=== PATIENT | female | born 1980 | race Caucasian/White ===

== ENCOUNTER 2020-04-11 12:06 | Inpatient (IN) | payer OTHER ==
[2020-04-11] MEDS ORDERED: Ondansetron 4 MG/2 ML SDV IVPUSH PRN (12:28)
[2020-04-11] MEDS ORDERED: Sodium Chloride 0.9% 10 ML Syringe FLUSH PRN (12:28)
[2020-04-11] MEDS ORDERED: Nalbuphine 10 MG/ML Syringe IVPUSH PRN (12:28)
[2020-04-11] MEDS ORDERED: Oxytocin/Lactated Ringers 10 UNIT/1,000 ML BAG IV SCH (12:30)
--- NOTE | 2020-04-11 12:31 | PCM.LDHP ---
L&D History of Present Illness - General Date of Service: 04/11/20 Admit Problem/Dx: Patient Status Order with Admit Dx/Problem 04/11/20 12:13 Patient Status [ADT] Routine 04/11/20 12:29 Patient Status [ADT] Routine Admission Diagnosis/Problem Admission Diagnosis/Problem Source of Information: Patient History Limitations: Reports: No Limitations - History of Present Illness Introduction:: Patient is a 39-year-old at 37-3/7 weeks who comes in with rupture of membranes. This occurred at about 8:30 or so this morning. Has had minimal if any contractions since that time. Otherwise doing well. 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: , Spontaneous : 3 Para: 1 LMP (Approximate): Psychiatric History: Reports: Anxiety, Depression - Past Surgical History Female Surgical History: Reports: D&C Social & Family History - Tobacco Use Smoking Status *Q: Former Smoker - Alcohol Use Alcohol Use History: No - Recreational Drug Use Recreational Drug Use: No H&P Review of Systems - Review of Systems: Review Of Systems: See Below General: Reports: No Symptoms Pulmonary: Reports: No Symptoms Cardiovascular: Reports: No Symptoms Gastrointestinal: Reports: No Symptoms Genitourinary: Reports: No Symptoms Musculoskeletal: Reports: No Symptoms Psychiatric: Reports: No Symptoms Neurological: Reports: No Symptoms L&D Exam - Exam Exam: See Below - Vital Signs Weight: 83.915 kg - OB Specific Contraction Intensity: Irritability Movement: Active Heart Tones: Present Heart Tones per Min: 140 Heart Rate (FHR) Variability: Moderate (6-25 bmp) Presentation: Vertex - French Score French Score Cervix Position: Midposition French Score Consistency: Soft French Score Effacement: 51-70% French Score Dilation: 1-2 cm French Score 's Station: -2 French Score Total: 7 - Exam General: Alert, Oriented, Cooperative Lungs: Clear to Auscultation, Normal Respiratory Effort Cardiovascular: Regular Rate, Regular Rhythm GI/Abdominal Exam: Soft, Non-Tender Genitourinary: Normal external exam Extremities: Normal Inspection Skin: Warm, Dry, Intact - Patient Data Result Diagrams: 04/11/20 13:01 - Problem List (1) Spontaneous rupture of membranes SNOMED Code(s): 370726367 ICD Code: [id number] - Status: Acute Current Visit: Yes (2) 37 weeks gestation of SNOMED Code(s): 77483362 ICD Code: Z3A.37 - 37 WEEKS GESTATION OF Status: Acute Current Visit: Yes Problem List Initiated/Reviewed/Updated: Yes Orders Last 24hrs: Active Orders 24 hr Category Date Time Status Patient Status [ADT] Routine ADT 04/11/20 12:13 Active Patient Status [ADT] Routine ADT 04/11/20 12:29 Ordered Activity as Tolerated [RC] PFP Care 04/11/20 12:28 Ordered Communication Order [RC] ASDIRECTED Care 04/11/20 12:28 Ordered Heart Tones [RC] ASDIRECTED Care 04/11/20 12:29 Ordered Non Stress Test [RC] PER UNIT ROUTINE Care 04/11/20 12:13 Active Notify Provider [RC] PRN Care 04/11/20 12:28 Ordered Peripheral IV Care [RC] . DIRECTED Care 04/11/20 12:29 Ordered Vital Signs [RC] PER UNIT ROUTINE Care 04/11/20 12:13 Active Vital Signs [RC] PER UNIT ROUTINE Care 04/11/20 12:28 Ordered Regular Diet [DIET] Diet 04/11/20 Lunch Ordered CBC W/O DIFF,HEMOGRAM [HEME] Routine Lab 04/11/20 12:28 Ordered CORONAVIRUS COVID-19 EZIO [MOLEC] Routine Lab 04/11/20 12:28 Ordered RAPID PLASMA REAGIN,RPR [CHEM] Routine Lab 04/11/20 12:28 Ordered TYPE AND SCREEN [BBK] Routine Lab 04/11/20 12:28 Ordered Lactated Ringers [Ringers, Lactated] 1,000 ml Med 04/11/20 12:30 Ordered IV ASDIRECTED Nalbuphine [Nubain] Med 04/11/20 12:28 Ordered 10 mg IVPUSH Q2H PRN Ondansetron [Zofran] Med 04/11/20 12:28 Ordered 4 mg IVPUSH Q4H PRN Oxytocin/Lactated Ringers [Pitocin in LR 10 Units/1,000 Med 04/11/20 12:30 Ordered ML] 10 unit in 1,000 ml IV .CONTINUOUS Sodium Chloride 0.9% [Saline Flush] Med 04/11/20 12:28 Ordered 10 ml FLUSH ASDIRECTED PRN Electronic Heart Tones Ext w TOCO [WOMSER] Oth 04/11/20 12:28 Ordered Routine Electronic Heart Tones Internal [WOMSER] Per Unit Ot 04/11/20 12:28 Ordered Routine Peripheral IV Insertion Adult [OM.PC] Routine Ot 04/11/20 12:28 Ordered Resuscitation Status Routine Resus Stat 04/11/20 12:13 Ordered Assessment/Plan Comment:: * Labs done * GBS negative * Consider pitocin augmentation if no painful contractions * Pain management per patient preference * Anticipate
[2020-04-11] MEDS: Lactated Ringers 1,000 ML IV SCH ×3 (14:28→17:25)
[2020-04-11] MEDS ORDERED: diphenhydrAMINE 50 MG/ML SDV IVPUSH PRN (14:34)
[2020-04-11] MEDS ORDERED: fentaNYL 100 MCG/2 ML SDV EPIDUR PRN (14:34)
[2020-04-11] MEDS ORDERED: ePHEDrine 50 MG/ML SDV IVPUSH PRN (14:34)
[2020-04-11] MEDS ORDERED: Bupivacaine/fentaNYL/NS 100 ML Bag EPIDUR PRN (14:34)
--- NOTE | 2020-04-11 18:39 | PCM.DEL ---
L & D Note - General Info Date of Service: 04/11/20 - Delivery Note Labor: Spontaneous Delivery Outcome: Livebirth Delivery Method: Spontaneous Vaginal Delivery-Single Delivery Mode: Spontaneous Presentation: Right Occiput Anterior (HANNAH) Nuchal Cord: None Anesthesia Type: Epidural Amniotic Fluid Description: Clear Episiotomy Type: None Laceration: None Placenta: Intact, Spontaneous Cord: 3 Vessels Estimated Blood Loss: 100 Resuscitation Needed: Yes [place]: Bulb Syringe, Stimulated, Warmed, [place] Used, Warmer Used Delivery Comments (Free Text/Narrative):: Patient found to be complete and began pushing. With maternal pushing effort head delivered from an HANNAH presentation. No nuchal cord present. With gentle downward traction the shoulders and body delivered. Infant placed on maternal abdomen. Cord clamped and cut. Cord blood obtained. Placenta allowed time to separate and expelled intact. Inspection of the perineum showed no lacerations - General Info Date of Service: 04/11/20 - Patient Data Vitals - Most Recent: Last Vital Signs Temp 36.9 C 04/11/20 12:13 Pulse 89 04/11/20 12:13 Resp 16 04/11/20 12:13 BP 127/89 04/11/20 12:13 Pulse Ox 98 04/11/20 12:13 Weight - Most Recent: 83.915 kg - Problem List & Annotations (1) Spontaneous rupture of membranes SNOMED Code(s): 337061767 Code(s): VQW3844 - Status: Acute Current Visit: Yes (2) 37 weeks gestation of SNOMED Code(s): 61416081 Code(s): Z3A.37 - 37 WEEKS GESTATION OF Status: Acute Current V isit: Yes - Problem List Review Problem List Initiated/Reviewed/Updated: Yes - My Orders Last 24 Hours: My Active Orders 04/11/20 Lunch Regular Diet [DIET] 04/11/20 12:13 Patient Status [ADT] Routine Non Stress Test [RC] PER UNIT ROUTINE Vital Signs [RC] PER UNIT ROUTINE Resuscitation Status Routine 04/11/20 12:28 Activity as Tolerated [RC] PFP Communication Order [RC] ASDIRECTED Notify Provider [RC] PRN Vital Signs [RC] PER UNIT ROUTINE Nalbuphine [Nubain] 10 mg IVPUSH Q2H PRN Ondansetron [Zofran] 4 mg IVPUSH Q4H PRN Sodium Chloride 0.9% [Saline Flush] 10 ml FLUSH ASDIRECTED PRN Electronic Heart Tones Ext w TOCO [WOMSER] Routine Electronic Heart Tones Internal [WOMSER] Per Unit Routine Peripheral IV Insertion Adult [OM.PC] Routine 04/11/20 12:29 Patient Status [ADT] Routine Heart Tones [RC] ASDIRECTED Peripheral IV Care [RC] . DIRECTED 04/11/20 12:30 Lactated Ringers [Ringers, Lactated] 1,000 ml IV ASDIRECTED Oxytocin/Lactated Ringers [Pitocin in LR 10 Units/1,000 ML] 10 unit in 1,000 ml IV .CONTINUOUS 04/11/20 13:01 RAPID PLASMA REAGIN,RPR [CHEM] Routine 04/11/20 14:01 PATIENT RETYPE [BBK] Routine - Assessment Assessment:: PPD#0 - Plan Plan:: * Routine cares * Breast feeding * Discharge home in 1-2 days
[2020-04-11] MEDS ORDERED: Benzocaine/Menthol 20%-0.5% Spray 56 GM Canister TOP PRN (19:18)
[2020-04-11] MEDS ORDERED: Ibuprofen 600 MG Tab PO PRN (19:18)
[2020-04-11] MEDS ORDERED: Acetaminophen 325 MG Tab PO PRN (19:18)
[2020-04-11] MEDS ORDERED: Witch Hazel Medicated Pads 40/Jar TOP PRN (19:18)
--- NOTE | 2020-04-11 20:17 | PCM.PREANE ---
Preanesthetic Assessment - Procedure Proposed Procedure: Continuous Labor epidural - Anesthesia/Transfusion/Family Hx Anesthesia History: Prior Anesthesia Without Reaction Transfusion History: No Prior Transfusion(s) - Review of Systems General: No Symptoms Pulmonary: No Symptoms Cardiovascular: No Symptoms Gastrointestinal: No Symptoms Neurological: No Symptoms Other: Reports: None - Physical Assessment Vital Signs: Last Vital Signs Temp 98.4 F 04/11/20 12:13 Pulse 89 04/11/20 12:13 Resp 16 04/11/20 12:13 BP 127/89 04/11/20 12:13 Pulse Ox 98 04/11/20 12:13 Height: 1.55 m Weight: 83.915 kg ASA Class: 2 Mental Status: Alert & Oriented x3 Airway Class: Mallampati = 3 Dentition: Reports: Normal Dentition, [place](s) Thyro-Mental Finger Breadths: 3 Mouth Opening Finger Breadths: 3 ROM/Head Extension: Full Lungs: Clear to Auscultation, Normal Respiratory Effort Cardiovascular: Regular Rate, Regular Rhythm - Lab Values: Laboratory Last Values WBC 12.95 K/mm3 (3.98-10.04) H 04/11/20 13:01 RBC 3.30 M/mm3 (3.98-5.22) L 04/11/20 13:01 Hgb 10.7 gm/dl (11.2-15.7) L 04/11/20 13:01 Hct 32.2 % (34.1-44.9) L 04/11/20 13:01 MCV 97.6 fl (79.4-94.8) H 04/11/20 13:01 MCH 32.4 pg (25.6-32.2) H 04/11/20 13:01 MCHC 33.2 g/dl (32.2-35.5) 04/11/20 13:01 RDW Std Deviation 48.1 fL (36.4-46.3) H 04/11/20 13:01 Plt Count 336 K/mm3 (182-369) 04/11/20 13:01 MPV 11.4 fl (9.4-12.3) 04/11/20 13:01 COVID-19 (EZIO) Negative (NEGATIVE) 04/11/20 13:05 Blood Type O POSITIVE 04/11/20 13:01 Gel Antibody Screen Negative 08/04/20 13:01 - Allergies Allergies/Adverse Reactions: Allergies Allergy/AdvReac Type Severity Reaction Status Date / Time No Known Allergies Allergy Verified 04/11/20 12:13 - Acknowledgements Anesthesia Type Planned: Epidural Pt an Appropriate Candidate for the Planned Anesthesia: Yes Alternatives and Risks of Anesthesia Discussed w Pt/Guardian: Yes Pt/Guardian Understands and Agrees with Anesthesia Plan: Yes PreAnesthesia Questionnaire - Past Health History Medical/Surgical History: Denies Medical/Surgical History Cardiovascular History: Reports: Other (See Below) (Hx of Transient hypertension in ) Genitourinary History: Reports: Pyelonephritis 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: , 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 Psychiatric History: Reports: Anxiety, Depression - Past Surgical History Female Surgical History: Reports: D&C - SUBSTANCE USE Smoking Status *Q: Former Smoker Second Hand Smoke Exposure: No Recreational Drug Use History: No - CURRENT (IN HOUSE) MEDS Current Meds: Current Medications Acetaminophen (Tylenol) 650 mg PO Q4H PRN PRN Reason: mild pain or fever Benzocaine/Menthol (Dermoplast Pain Relief [place]) 0 gm TOP ASDIRECTED PRN PRN Reason: Perineal Comfort Measure Ibuprofen (Motrin) 600 mg PO Q6H PRN PRN Reason: Mild pain or fever Witch [place] (Tucks) 1 pad TOP ASDIRECTED PRN PRN Reason: Perineal Comfort Measure Discontinued Medications Diphenhydramine HCl (Benadryl) 25 mg IVPUSH Q6H PRN PRN Reason: pruritis Ephedrine Sulfate (Ephedrine Sulfate) 5 mg IVPUSH ASDIRECTED PRN PRN Reason: Hypotension Fentanyl (Sublimaze) 100 mcg EPIDUR Q3H PRN PRN Reason: Pain Last Admin: 04/11/20 14:47 Dose: 100 mcg Documented by: Fentanyl/Bupivacaine HCl (Fentanyl/Bupivacaine/Ns 2 Mcg-0.125% 100 Ml) 100 ml EPIDUR ASDIRECTED PRN PRN Reason: Pain Last Admin: 04/11/20 14:48 Dose: 100 ml Documented by: Lactated Ringer's (Ringers, Lactated) 1,000 mls @ 100 mls/hr IV ASDIRECTED DK Last Admin: 04/11/20 17:25 Dose: 150 mls/hr Documented by: Oxytocin/Lactated Ringer's (Pitocin In Lr 10 Units/1,000 Ml) 10 unit in 1,000 mls @ 500 mls/hr IV .CONTINUOUS DK Last Admin: 04/11/20 18:14 Dose: 500 mls/hr Documented by: Nalbuphine HCl (Nubain) 10 mg IVPUSH Q2H PRN PRN Reason: Pain Ondansetron HCl (Zofran) 4 mg IVPUSH Q4H PRN PRN Reason: Nausea/Vomiting Sodium Chloride (Saline Flush) 10 ml FLUSH ASDIRECTED PRN PRN Reason: Keep Vein Open
[2020-04-12] MEDS ORDERED: Lidocaine 1.5% with EPINEPHrine 1:200,000 5 ML Amp ONE
[2020-04-12] MEDS ORDERED: Hydrocortisone Acetate 25 MG Supp RECTAL PRN (00:22)
--- NOTE | 2020-04-12 06:03 | PCM.PNPP ---
- General Info Date of Service: 04/12/20 Functional Status: Reports: Pain Controlled, Tolerating Diet, Ambulating, Urinating - Review of Systems General: Reports: No Symptoms Pulmonary: Reports: No Symptoms Cardiovascular: Reports: No Symptoms Gastrointestinal: Reports: No Symptoms Genitourinary: Reports: No Symptoms Musculoskeletal: Reports: No Symptoms Neurological: Reports: No Symptoms - Patient Data Vital Signs - Most Recent: Last Vital Signs Temp 36.6 C 04/12/20 02:07 Pulse 78 04/12/20 02:07 Resp 14 04/12/20 02:07 BP 118/78 04/12/20 02:07 Pulse Ox 98 04/12/20 02:07 Weight - Most Recent: 83.915 kg I&O - Last 24 Hours: Intake & Output 04/11/20 04/11/20 04/12/20 14:59 22:59 06:59 Intake Total 3050 Output Total 175 Balance 2875 Lab Results - Last 24 Hours: Laboratory Results - last 24 hr 04/11/20 04/11/20 04/11/20 Range/Units 13:01 13:01 13:01 WBC 12.95 H (3.98-10.04) K/mm3 RBC 3.30 L (3.98-5.22) M/mm3 Hgb 10.7 L (11.2-15.7) gm/dl Hct 32.2 L (34.1-44.9) % MCV 97.6 H (79.4-94.8) fl MCH 32.4 H (25.6-32.2) pg MCHC 33.2 (32.2-35.5) g/dl RDW Std Deviation 48.1 H (36.4-46.3) fL Plt Count 336 (182-369) K/mm3 MPV 11.4 (9.4-12.3) fl RPR Non-reactive (NONREACTIVE) COVID-19 (EZIO) (NEGATIVE) Blood Type O POSITIVE Gel Antibody Screen Negative 04/11/20 Range/Units 13:05 WBC (3.98-10.04) K/mm3 RBC (3.98-5.22) M/mm3 Hgb (11.2-15.7) gm/dl Hct (34.1-44.9) % MCV (79.4-94.8) fl MCH (25.6-32.2) pg MCHC (32.2-35.5) g/dl RDW Std Deviation (36.4-46.3) fL Plt Count (182-369) K/mm3 MPV (9.4-12.3) fl RPR (NONREACTIVE) COVID-19 (EZIO) Negative (NEGATIVE) Blood Type Gel Antibody Screen Med Orders - Current: Current Medications Acetaminophen (Tylenol) 650 mg PO Q4H PRN PRN Reason: mild pain or fever Benzocaine/Menthol (Dermoplast Pain Relief [place]) 0 gm TOP ASDIRECTED PRN PRN Reason: Perineal Comfort Measure Hydrocortisone Acetate (Anucort-Hc) 25 mg RECTAL DAILY PRN PRN Reason: Hemorrhoids Ibuprofen (Motrin) 600 mg PO Q6H PRN PRN Reason: Mild pain or fever [place] (Tucks) 1 pad TOP ASDIRECTED PRN PRN Reason: Perineal Comfort Measure Discontinued Medications Diphenhydramine HCl (Benadryl) 25 mg IVPUSH Q6H PRN PRN Reason: pruritis Ephedrine Sulfate (Ephedrine Sulfate) 5 mg IVPUSH ASDIRECTED PRN PRN Reason: Hypotension Fentanyl (Sublimaze) 100 mcg EPIDUR Q3H PRN PRN Reason: Pain Last Admin: 04/11/20 14:47 Dose: 100 mcg Documented by: Fentanyl/Bupivacaine HCl (Fentanyl/Bupivacaine/Ns 2 Mcg-0.125% 100 Ml) 100 ml EPIDUR ASDIRECTED PRN PRN Reason: Pain Last Admin: 04/11/20 14:48 Dose: 100 ml Documented by: Lactated Ringer's (Ringers, Lactated) 1,000 mls @ 100 mls/hr IV ASDIRECTED DK Last Admin: 04/11/20 17:25 Dose: 150 mls/hr Documented by: Oxytocin/Lactated Ringer's (Pitocin In Lr 10 Units/1,000 Ml) 10 unit in 1,000 mls @ 500 mls/hr IV .CONTINUOUS DK Last Admin: 04/11/20 18:14 Dose: 500 mls/hr Documented by: Nalbuphine HCl (Nubain) 10 mg IVPUSH Q2H PRN PRN Reason: Pain Ondansetron HCl (Zofran) 4 mg IVPUSH Q4H PRN PRN Reason: Nausea/Vomiting Sodium Chloride (Saline Flush) 10 ml FLUSH ASDIRECTED PRN PRN Reason: Keep Vein Open - Infant Interaction Infant Disposition, : in Room with Family Infant Interaction: Holding Infant Feeding: Attempted ; Nursed Fair/Poor Support Person: - Recovery Exam Fundal Tone: Firm Fundal Level: 1 Fingerbreadths Below Umbilicus Fundal Placement: Midline Lochia Amount: Small, Moderate Lochia Color: Rubra/Red Perineum Description: Intact, Minimal Bruising/Swelling Bladder Status: Voiding Urinary Elimination: Voided - Exam General: Alert, Oriented, Cooperative GI/Abdominal Exam: Soft, Non-Tender Extremities: Normal Inspection Skin: Warm, Dry, Intact - Problem List & Annotations (1) Spontaneous rupture of membranes SNOMED Code(s): 138014137 Code(s): BMO5168 - Status: Acute Current Visit: Yes (2) 37 weeks gestation of SNOMED Code(s): 07725433 Code(s): Z3A.37 - 37 WEEKS GESTATION OF Status: Acute Current Visit: Yes (3) Vaginal delivery SNOMED Code(s): 217433253 Code(s): O80 - ENCOUNTER FOR FULL-TERM UNCOMPLICATED DELIVERY Status: Acute Current Visit: Yes - Problem List Review Problem List Initiated/Reviewed/Updated: Yes - My Orders Last 24 Hours: My Active Orders 04/11/20 12:13 Resuscitation Status Routine 04/11/20 Dinner Regular Diet [DIET] 04/11/20 19:18 Acetaminophen [Tylenol] 650 mg PO Q4H PRN Benzocaine/Menthol [Dermoplast Pain Relief [place]] See Dose Instructions TOP ASDIRECTED PRN Ibuprofen [Motrin] 600 mg PO Q6H PRN [place] [Tucks] 1 pad TOP ASDIRECTED PRN Heat Therapy [OM.PC] PRN 04/11/20 19:18 Activity as Tolerated [RC] PER UNIT ROUTINE Vital Signs [RC] 03,09,15,21 Assess Lochia [WOMSER] Per Unit Routine Assess Uterine Involution [WOMSER] Per Unit Routine Breast Pump [WOMSER] Per Unit Routine Ice Therapy [OM.PC] Per Unit Routine Perineal Care [OM.PC] Per Unit Routine Peripheral IV Discontinue [OM.PC] Routine Sitz Bath [OM.PC] Per Unit Routine 04/12/20 00:22 Hydrocortisone Acetate [Anucort-HC] 25 mg RECTAL DAILY PRN 04/12/20 19:18 Heat Therapy [OM.PC] PRN - Assessment Assessment:: PPD#1 - Plan Plan:: * Routine cares * Breast feeding * Discharge home today
--- NOTE | 2020-04-12 06:32 | PCM.DCSUM1 ---
Discharge Summary - Discharge Data Discharge Date: 04/12/20 Discharge Disposition: Home, Self-Care 01 Condition: Good - Referral to Home Health Primary Care Physician: Marisela Radford MD - Discharge Diagnosis/Problem(s) (1) Spontaneous rupture of membranes SNOMED Code(s): 094716105 ICD Code: [id number] - Status: Acute Current Visit: Yes (2) 37 weeks gestation of SNOMED Code(s): 15235657 ICD Code: Z3A.37 - 37 WEEKS GESTATION OF Status: Acute Current Visit: Yes (3) Vaginal delivery SNOMED Code(s): 142596028 ICD Code: O80 - ENCOUNTER FOR FULL-TERM UNCOMPLICATED DELIVERY Status: Acute Current Visit: Yes - Patient Summary/Data Complications: None Consults: None Recommended Follow-up Testing/Procedures: Follow up in 3 weeks for check Hospital Course: 39 y/o at 37 4/7 wks who presented with SROM. Progressed well to complete dilation and underwent an uncomplicated . See delivery note . did well and was discharged home on PPD#1 - Patient Instructions Diet: Regular Diet as Tolerated Activity: As Tolerated Activity, Other: Pelvic rest for 6 weeks Driving: May Drive Today Showering/Bathing: May Shower Showering/Bathing, Other: May Bathe Notify Provider of: Fever, Increased Pain, Swelling and Redness, Drainage, Nausea and/or Vomiting - Discharge Plan *PRESCRIPTION DRUG MONITORING PROGRAM REVIEWED*: No *COPY OF PRESCRIPTION DRUG MONITORING REPORT IN PATIENT MCKAYLA: No Home Medications: Home Meds Ibuprofen [Motrin] 600 mg PO Q6H PRN tablet 04/12/20 [Rx] Patient Handouts: Care After Vaginal Delivery Referrals: Marisela Radford MD [Primary Care Provider] - (3 weeks for check - can be telehealth ) - Discharge Summary/Plan Comment DC Time >30 min.: No - Patient Data Vitals - Most Recent: Last Vital Signs Temp 36.6 C 04/12/20 02:07 Pulse 78 04/12/20 02:07 Resp 14 04/12/20 02:07 BP 118/78 04/12/20 02:07 Pulse Ox 98 04/12/20 02:07 Weight - Most Recent: 83.915 kg I&O - Last 24 hours: Intake & Output 0804/11/20 04/12/20 14:59 22:59 06:59 Intake Total 3050 Output Total 175 Balance 2875 Lab Results - Last 24 hrs: Laboratory Results - last 24 hr 04/11/20 04/11/20 04/11/20 Range/Units 13:01 13:01 13:01 WBC 12.95 H (3.98-10.04) K/mm3 RBC 3.30 L (3.98-5.22) M/mm3 Hgb 10.7 L (11.2-15.7) gm/dl Hct 32.2 L (34.1-44.9) % MCV 97.6 H (79.4-94.8) fl MCH 32.4 H (25.6-32.2) pg MCHC 33.2 (32.2-35.5) g/dl RDW Std Deviation 48.1 H (36.4-46.3) fL Plt Count 336 (182-369) K/mm3 MPV 11.4 (9.4-12.3) fl RPR Non-reactive (NONREACTIVE) COVID-19 (EZIO) (NEGATIVE) Blood Type O POSITIVE Gel Antibody Screen Negative 04/11/20 Range/Units 13:05 WBC (3.98-10.04) K/mm3 RBC (3.98-5.22) M/mm3 Hgb (11.2-15.7) gm/dl Hct (34.1-44.9) % MCV (79.4-94.8) fl MCH (25.6-32.2) pg MCHC (32.2-35.5) g/dl RDW Std Deviation (36.4-46.3) fL Plt Count (182-369) K/mm3 MPV (9.4-12.3) fl RPR (NONREACTIVE) COVID-19 (EZIO) Negative (NEGATIVE) Blood Type Gel Antibody Screen Med Orders - Current: Current Medications Acetaminophen (Tylenol) 650 mg PO Q4H PRN PRN Reason: mild pain or fever Benzocaine/Menthol (Dermoplast Pain Relief [place]) 0 gm TOP ASDIRECTED PRN PRN Reason: Perineal Comfort Measure Hydrocortisone Acetate (Anucort-Hc) 25 mg RECTAL DAILY PRN PRN Reason: Hemorrhoids Ibuprofen (Motrin) 600 mg PO Q6H PRN PRN Reason: Mild pain or fever [place] (Tucks) 1 pad TOP ASDIRECTED PRN PRN Reason: Perineal Comfort Measure Discontinued Medications Diphenhydramine HCl (Benadryl) 25 mg IVPUSH Q6H PRN PRN Reason: pruritis Ephedrine Sulfate (Ephedrine Sulfate) 5 mg IVPUSH ASDIRECTED PRN PRN Reason: Hypotension Fentanyl (Sublimaze) 100 mcg EPIDUR Q3H PRN PRN Reason: Pain Last Admin: 04/11/20 14:47 Dose: 100 mcg Documented by: Fentanyl/Bupivacaine HCl (Fentanyl/Bupivacaine/Ns 2 Mcg-0.125% 100 Ml) 100 ml EPIDUR ASDIRECTED PRN PRN Reason: Pain Last Admin: 04/11/20 14:48 Dose: 100 ml Documented by: Lactated Ringer's (Ringers, Lactated) 1,000 mls @ 100 mls/hr IV ASDIRECTED DK Last Admin: 04/11/20 17:25 Dose: 150 mls/hr Documented by: Oxytocin/Lactated Ringer's (Pitocin In Lr 10 Units/1,000 Ml) 10 unit in 1,000 mls @ 500 mls/hr IV .CONTINUOUS DK Last Admin: 04/11/20 18:14 Dose: 500 mls/hr Documented by: Nalbuphine HCl (Nubain) 10 mg IVPUSH Q2H PRN PRN Reason: Pain Ondansetron HCl (Zofran) 4 mg IVPUSH Q4H PRN PRN Reason: Nausea/Vomiting Sodium Chloride (Saline Flush) 10 ml FLUSH ASDIRECTED PRN PRN Reason: Keep Vein Open
--- NOTE | 2020-04-12 07:25 | PCM48HPAN ---
Post Anesthesia Note - EVALUATION WITHIN 48HRS OF ANESTHETIC Vital Signs in Normal Range: Yes Patient Participated in Evaluation: Yes Respiratory Function Stable: Yes Airway Patent: Yes Cardiovascular Function Stable: Yes Hydration Status Stable: Yes Pain Control Satisfactory: Yes Nausea and Vomiting Control Satisfactory: Yes Mental Status Recovered: Yes Vital Signs: Last Vital Signs Temp 36.6 C 04/12/20 02:07 Pulse 78 04/12/20 02:07 Resp 14 04/12/20 02:07 BP 118/78 04/12/20 02:07 Pulse Ox 98 04/12/20 02:07
== END 2020-04-12 19:48 | disposition home or self-care (01) | DRG 807 ==
LOC: JD.OBCHECK 12:06 → JD.OB 12:07 → JD.OBCHECK 12:29 → JD.OB 18:12 → OBSVTOIN 18:12
PROVIDERS: ADMIT Obstetrics & Gynecology; ATTEND Obstetrics & Gynecology
PROC: 10E0XZZ Delivery of Products of Conception, External Approach (ICD-10-PCS; principal; 2020-04-11)
PROC: 3E0R3BZ Introduction of Anesthetic Agent into Spinal Canal, Percutaneous Approach (ICD-10-PCS; 2020-04-11)
PROC: 00HU03Z Insertion of Infusion Device into Spinal Canal, Open Approach (ICD-10-PCS; 2020-04-11)
DX: O80 Encounter for full-term uncomplicated delivery (principal); Z37.0 Single live birth; Z3A.37 37 weeks gestation of pregnancy; Z87.891 Personal history of nicotine dependence; Z11.59 Encounter for screening for other viral diseases
CPT/HCPCS: 01967; 36415; 51702; 59025; 59409; 85027; 86592; 86850; 86900; 86901; A9270-GY; J2590; J3010; J7120; U0002

== ENCOUNTER 2024-07-11 16:28 | Emergency (ER) | payer BC, OTHER ==
[2024-07-11] MEDS: Iopamidol 612 MG/ML 100 ML Bottle IVPUSH ONE (17:53)
[2024-07-11 17:55] LABS: BASOPHILS ABSOLUTE AUTO 0.1 K/mm3 (0.0-0.2); BASOPHILS PERCENT AUTO 0.5 % (0.0-1.0); EOSINOPHILS ABSOLUTE AUTO 0.1 K/mm3 (0.0-0.4); EOSINOPHILS PERCENT AUTO 0.8 % (0.0-6.0); HEMATOCRIT 37.8 % (37.0-47.0); HEMOGLOBIN 13.2 gm/dl (12.0-16.0); IMMATURE GRAN ABSOLUTE AUTO 0.04 K/mm3 (0.00-0.05); IMMATURE GRAN PERCENT AUTO 0.4 % (0.0-0.4); LYMPHOCYTES ABSOLUTE AUTO 3.1 K/mm3 (1.0-4.8); LYMPHOCYTES PERCENT AUTO 29.6 % (24.0-44.0); MEAN CORPUSCULAR HEMOGLOBIN 33.7 pg (28.0-32.0); MEAN CORPUSCULAR HGB CONC 34.9 g/dl (32.0-36.0); MEAN CORPUSCULAR VOLUME 96.4 fl (83.0-99.0); MEAN PLATELET VOLUME 9.8 fl (9.4-12.3); MONOCYTES ABSOLUTE AUTO 0.7 K/mm3 (0.0-0.8); MONOCYTES PERCENT AUTO 6.4 % (0.0-8.0); NEUTROPHILS ABSOLUTE AUTO 6.6 K/mm3 (1.8-7.7); NEUTROPHILS PERCENT AUTO 62.3 % (41.0-71.0); PLATELET COUNT,PLT 281 K/mm3 (150-400); RED BLOOD CELL COUNT 3.92 M/mm3 (4.10-5.30); WHITE BLOOD CELL COUNT,WBC 10.59 K/mm3 (3.9-11.3)
[2024-07-11] MEDS: Sodium Chloride 0.9% 1,000 ML IV STA (17:56)
[2024-07-11] MEDS: HYDROmorphone 0.5 MG/0.5 ML Syringe IVPUSH ONE (17:56)
[2024-07-11] MEDS: Ondansetron 4 MG/2 ML SDV IVPUSH ONE (17:56)
[2024-07-11] MEDS: Sodium Chloride 0.9% 10 ML Syringe FLUSH PRN (17:59)
[2024-07-11 18:16] LABS: A/G RATIO 1.2 (1-2); ALBUMIN 3.6 g/dl (3.4-5.0); ANION GAP 12.7 (5-15); BILIRUBIN TOTAL 0.4 mg/dL (0.2-1.0); BUN/CREATININE RATIO 7.1 (14-18); CALCIUM 8.6 mg/dL (8.5-10.1); CREATININE 0.7 mg/dL (0.55-1.02); EST CRCL DRUG DOSING (CG) 76.58 mL/min; POTASSIUM,K 3.7 mEq/L (3.5-5.1); PROTEIN TOTAL,TP 6.5 g/dl (6.4-8.2)
[2024-07-11 18:32] LABS: APPEARANCE,URINE CLEAR (Clear); BILIRUBIN,URINE NEGATIVE (Negative); COLOR,URINE YELLOW (Yellow); GLUCOSE,URINE NEGATIVE (Negative); KETONES,URINE 1+ (Negative); LEUKOCYTE ESTERASE,URINE NEGATIVE (Negative); NITRITE,URINE NEGATIVE (Negative); OCCULT BLOOD,URINE NEGATIVE (Negative); PROTEIN,URINE NEGATIVE (Negative); UROBILINOGEN,URINE 0.2 (0.2-1.0)
[2024-07-11 18:38] LABS: BACTERIA,URINE FEW /hpf (FEW); MUCUS,URINE FEW /hpf (FEW); RBC,URINE 0-5 /hpf (0-5); WBC,URINE 0-5 /hpf (0-5)
== END 2024-07-11 20:15 | disposition home or self-care (01) ==
LOC: JD.ED 16:28
DX: N83.202 Unspecified ovarian cyst, left side (principal); R10.31 Right lower quadrant pain; F17.210 Nicotine dependence, cigarettes, uncomplicated; Z79.899 Other long term (current) drug therapy
CPT/HCPCS: 36415; 74177; 80053; 81001; 83690; 84703; 85025; 96361; 96374; 96375; 99284; J1171; J2405; J3490; J7030; Q9967; 99283

== ENCOUNTER 2024-09-28 07:59 | Emergency (ER) | payer BC ==
[2024-09-28 09:56] LABS: BASOPHILS ABSOLUTE AUTO 0.1 K/mm3 (0.0-0.2); BASOPHILS PERCENT AUTO 0.4 % (0.0-1.0); EOSINOPHILS ABSOLUTE AUTO 0.1 K/mm3 (0.0-0.4); EOSINOPHILS PERCENT AUTO 0.8 % (0.0-6.0); HEMOGLOBIN 13.6 gm/dl (12.0-16.0); IMMATURE GRAN ABSOLUTE AUTO 0.05 K/mm3 (0.00-0.05); IMMATURE GRAN PERCENT AUTO 0.4 % (0.0-0.4); LYMPHOCYTES ABSOLUTE AUTO 3.3 K/mm3 (1.0-4.8); MEAN CORPUSCULAR HGB CONC 34.9 g/dl (32.0-36.0); MEAN CORPUSCULAR VOLUME 97.5 fl (83.0-99.0); MEAN PLATELET VOLUME 9.8 fl (9.4-12.3); MONOCYTES ABSOLUTE AUTO 0.8 K/mm3 (0.0-0.8); NEUTROPHILS PERCENT AUTO 67.4 % (41.0-71.0); PLATELET COUNT,PLT 268 K/mm3 (150-400); WHITE BLOOD CELL COUNT,WBC 13.27 K/mm3 (3.9-11.3)
[2024-09-28 10:41] LABS: A/G RATIO 1.4 (1-2); ANION GAP 14.7 (5-15); BILIRUBIN TOTAL 0.5 mg/dL (0.2-1.0); BUN/CREATININE RATIO 14.3 (14-18); CALCIUM 9.3 mg/dL (8.5-10.1); CREATININE 0.7 mg/dL (0.55-1.02); EST CRCL DRUG DOSING (CG) 76.58 mL/min; POTASSIUM,K 3.7 mEq/L (3.5-5.1); PROTEIN TOTAL,TP 6.8 g/dl (6.4-8.2)
[2024-09-28] MEDS: Metoclopramide 10 MG/2 ML SDV IVPUSH ONE (10:43)
[2024-09-28] MEDS: Morphine 2 MG/ML SYRINGE IVPUSH PRN (10:46)
[2024-09-28] MEDS: Sodium Chloride 0.9% 1,000 ML IV ONE (10:48)
[2024-09-28 16:17] LABS: APPEARANCE,URINE CLEAR (Clear); BILIRUBIN,URINE NEGATIVE (Negative); COLOR,URINE YELLOW (Yellow); GLUCOSE,URINE NEGATIVE (Negative); KETONES,URINE 4+ (Negative); LEUKOCYTE ESTERASE,URINE NEGATIVE (Negative); NITRITE,URINE NEGATIVE (Negative); OCCULT BLOOD,URINE TRACE-INTACT (Negative); PROTEIN,URINE NEGATIVE (Negative); UROBILINOGEN,URINE 0.2 (0.2-1.0)
[2024-09-28 16:38] LABS: BACTERIA,URINE FEW /hpf (FEW); MUCUS,URINE FEW /hpf (FEW); RBC,URINE 0-5 /hpf (0-5); SQUAMOUS EPITHELIAL CELLS,UR 0-5 /hpf (0-5); WBC,URINE 0-5 /hpf (0-5)
== END 2024-09-28 17:20 | disposition home or self-care (01) ==
LOC: JD.ED 07:59
DX: K82.8 Other specified diseases of gallbladder (principal); Z79.899 Other long term (current) drug therapy
CPT/HCPCS: 36415; 76700; 76700-26; 76856; 76856-26; 80053; 81001; 85025; 96361; 96374; 96375; 99284-25; J2270; J2765; J7030

== ENCOUNTER 2024-10-14 08:38 | Day surgery (SDC) | payer BC ==
[~2024-10-14 08:38] MED LIST: Sodium Chloride 0.9% 10 ML Syringe FLUSH PRN; Sodium Chloride 0.9% 10 ML Syringe FLUSH SCH
[2024-10-14] MEDS: Lactated Ringers 1,000 ML IV SCH (09:15)
[2024-10-14] MEDS ORDERED: Propofol 200 MG/20 ML SDV ONE (11:00)
[2024-10-14] MEDS ORDERED: HYDROmorphone 0.5 MG/0.5 ML Syringe IVPUSH PRN (11:00)
[2024-10-14] MEDS ORDERED: Midazolam 1 MG/ML 2 ML SDV ONE (11:00)
[2024-10-14] MEDS ORDERED: fentaNYL 250 MCG/5 ML SDV ONE (11:00)
[2024-10-14] MEDS ORDERED: Ondansetron 4 MG/2 ML SDV IVPUSH PRN (11:00)
[2024-10-14] MEDS ORDERED: fentaNYL 100 MCG/2 ML SDV IVPUSH PRN (11:00)
[2024-10-14] MEDS ORDERED: dexmedeTOMIDine HCl 200 MCG/2 ML SDV ONE (11:05)
[2024-10-14] MEDS ORDERED: Ondansetron 4 MG/2 ML SDV ONE (11:05)
[2024-10-14] MEDS ORDERED: ceFAZolin 2 GM Vial ONE (11:05)
[2024-10-14] MEDS ORDERED: Glycopyrrolate 0.2 MG/ML 2 ML SDV ONE (11:05)
[2024-10-14] MEDS ORDERED: Rocuronium 50 MG/5 ML Vial ONE (11:05)
[2024-10-14] MEDS ORDERED: Dexamethasone 4 MG/ML 5 ML MDV ONE (11:05)
[2024-10-14] MEDS ORDERED: Sugammadex Sodium 200 MG/2 ML VIAL IV ONE (11:05)
[2024-10-14] MEDS ORDERED: Ketorolac 30 MG/ML SDV ONE (11:05)
[2024-10-14] MEDS ORDERED: Sodium Chloride 0.9% 100 ML ONE ×2 (11:10→11:54)
[2024-10-14] MEDS: Albuterol/Ipratropium 3.0-0.5 MG/3 ML Neb Soln NEB ONE (11:13)
[2024-10-14] MEDS ORDERED: Lactated Ringers 1,000 ML ONE (11:47)
[2024-10-14] MEDS ORDERED: Phenylephrine 1% 10 MG/ML SDV ONE (11:54)
[2024-10-14] MEDS: Bupivacaine 0.5% 30 ML SDV ONE (11:58)
[2024-10-14] MEDS: EPINEPHrine 1 MG/ML SDV ONE (11:58)
[2024-10-14] MEDS ORDERED: oxyCODONE 5 MG Tab PO PRN (13:29)
== END 2024-10-14 15:19 | disposition home or self-care (01) ==
LOC: JD.SDS 08:38
PROVIDERS: ATTEND Surgery
DX: K80.10 Calculus of gallbladder with chronic cholecystitis without obstruction (principal); K41.90 Unilateral femoral hernia, without obstruction or gangrene, not specified as recurrent; K40.90 Unilateral inguinal hernia, without obstruction or gangrene, not specified as recurrent; F32.A Depression, unspecified
CPT/HCPCS: 47562; 49659; C1781; J0171; J0665; J0690; J1100; J1885; J2250; J2371; J2405; J2704; J3010; J3490; J7120; 00790; J7620-GY